=== PATIENT | male | born 1980 | race Caucasian/White ===

== ENCOUNTER 2019-05-18 13:57 | Observation (INO) ==
[2019-05-18] MEDS ORDERED: Naloxone 0.4 MG/ML INJ IVP PRN ×2 (14:12→19:07)
[2019-05-18] MEDS ORDERED: Ondansetron 4 MG/2 ML VIAL IVP PRN ×2 (14:12→19:07)
[2019-05-18] MEDS ORDERED: Ringers Solution, Lactated 1,000 ML IVC SCH ×2 (14:15→19:07)
[2019-05-18] MEDS ORDERED: MetroNIDAZOLE 500 MG/100 ML 500 MG/100 ML BAG IVPB SCH (15:00)
[2019-05-18] MEDS ORDERED: Bupivacaine/EPI 1:200k 0.25%PF 30 ML VIAL ONE (16:20)
[2019-05-18 16:31] LABS: Hematocrit 45.1 % (37.5-50.1); Hemoglobin 15.2 g/dL (12.9-16.9); Mean Corpuscular HGB Conc 33.7 g/dL (31.6-35.5); Mean Corpuscular Hemoglobin 31.1 pg (28.0-33.3); Mean Corpuscular Volume 92.4 fL (83.0-100.0); Mean Platelet Volume 10.7 fL (9.4-12.4); Platelet Count 167 K/mcL (140-400); Red Blood Count 4.88 M/mcL (4.19-5.50); Red Cell Distribution Width 12.2 % (11.5-14.5); White Blood Count 9.8 K/mcL (4.3-11.1)
[2019-05-18] MEDS ORDERED: Ondansetron 4 MG/2 ML VIAL ONE (16:34)
[2019-05-18] MEDS ORDERED: *HR* Succinylcholine 200 MG/10 ML VIAL IVP ONE (16:34)
[2019-05-18] MEDS ORDERED: *HR* Midazolam HCl 2 MG/2 ML VIAL ONE (16:34)
[2019-05-18] MEDS ORDERED: *HR* Propofol 200 MG/20 ML VIAL IVP ONE ×2 (16:34→17:55)
[2019-05-18] MEDS ORDERED: Dexamethasone 4 MG/ML VIAL ONE ×2 (16:34→17:11)
[2019-05-18] MEDS ORDERED: *HR* FentaNYL (PF) 100 MCG/2 ML VIAL ONE (16:34)
[2019-05-18] MEDS ORDERED: Lidocaine -MPF 2% 2 ML VIAL ONE (16:34)
[2019-05-18] MEDS ORDERED: Lidocaine HCL 4 ML Topical Solution (Laryng-O-Jet Kit Sterile Pak) TP ONE (16:36)
[2019-05-18] MEDS ORDERED: Acetaminophen IV 1,000 MG/100 ML INFUS..BTL ONE (16:44)
[2019-05-18] MEDS ORDERED: *HR* HYDROMORPHONE 2 MG/ML VIAL ONE (17:56)
[2019-05-18] MEDS ORDERED: Ketorolac 30 MG/ML VIAL ONE (18:02)
[2019-05-18] MEDS ORDERED: Neostigmine Methylsulfate 3 MG/3 ML SYRINGE ONE (18:02)
[2019-05-18] MEDS ORDERED: Ringers Solution, Lactated 500 ML IVC ONE (18:33)
[2019-05-18] MEDS ORDERED: Acetaminophen 325 MG TABLET PO PRN (19:07)
[2019-05-18] MEDS ORDERED: *HR* OxyCODONE Immed Rel 5 MG TABLET PO PRN (19:07)
[2019-05-19] MEDS: MetroNIDAZOLE 500 MG/100 ML 500 MG/100 ML BAG IVPB SCH ×3 (00:51→15:00)
[2019-05-19 07:18] LABS: Hematocrit 40.4 % (37.5-50.1); Immature Granulocytes % 0.2 % (0-4); Lymphocytes # 0.5 K/mcL (0.6-4.6); Mean Corpuscular HGB Conc 33.7 g/dL (31.6-35.5); Mean Corpuscular Hemoglobin 31.1 pg (28.0-33.3); Mean Corpuscular Volume 92.4 fL (83.0-100.0); Mean Platelet Volume 11.4 fL (9.4-12.4); Monocytes # 0.3 K/mcL (0.0-1.3); Neutrophils # 7.5 K/mcL (1.6-8.9); Platelet Count 161 K/mcL (140-400); Red Blood Count 4.37 M/mcL (4.19-5.50); Red Cell Distribution Width 12.1 % (11.5-14.5); Segmented Neutrophils % 89.8 %; White Blood Count 8.3 K/mcL (4.3-11.1)
[2019-05-19 07:21] LABS: BUN/Creatinine Ratio 14 (6-26); Blood Urea Nitrogen 13 mg/dL (6-20); Carbon Dioxide 25 mEq/L (23-29); Chloride 101 mEq/L (98-107); Glucose 179 mg/dL (70-105); Osmolality,Calculated 287 (280-300); Potassium 4.1 mEq/L (3.5-5.1); Sodium 136 mEq/L (136-145); eGFR For African Americans > 60 (> 60); eGFR For Non-African Americans > 60 (> 60)
[2019-05-19 07:24] LABS: Hemoglobin 13.6 g/dL (12.9-16.9)
[2019-05-19] MEDS ORDERED: hydrOXYzine pamoate 25 MG CAPSULE PO PRN (07:57)
[2019-05-19] MEDS ORDERED: Metoprolol XL (24 HR) Succ 50 MG TAB.ER.24H PO SCH ×2 (09:00)
[2019-05-19 10:49] VITALS: BP 115/67
== END 2019-05-19 16:39 | disposition home or self-care (01) ==
LOC: 3ANU → SUATTDRO 14:34
PROVIDERS: ADMIT Student in an Organized Health Care Education/Training Program; ATTEND Internal Medicine